=== PATIENT | female | born 1975 | race Caucasian/White ===

== ENCOUNTER 2020-09-02 08:28 | Outpatient (CLI) | payer OTHER, SELFPAY ==
--- NOTE | ~2020-09-02 | MM_ITS ---
EXAMINATION: MM screening jan BI w chasidy HISTORY: Screening mammogram TECHNIQUE: Craniocaudal and mediolateral oblique 3-D tomosynthesis images were obtained and synthetic 2-D images were generated. CAD analysis was submitted and interpreted. COMPARISON: 08/07/2019, 08/01/2018, 8 03/2017 bilateral digital screening mammogram examinations BREAST PARENCHYMAL COMPOSITION: The breasts are extremely dense, which lowers the sensitivity of mamm ography. FINDINGS: There is no evidence of suspicious mass, calcification, or architectural distortion to sugg est malignancy in either breast. There has been no suspicious interval change. IMPRESSION: 1. No mammographic evidence of malignancy. 2. Recommend routine screening mammography in one year. BI-RADS Category 1: Negative Reviewed, dictated and finalized at location A.
== END 2020-09-02 08:29 | disposition home or self-care (01) ==
LOC: ANHIMG 08:32
PROVIDERS: PCP Obstetrics & Gynecology; Visit Provider Obstetrics & Gynecology
DX: Z12.31 Encounter for screening mammogram for malignant neoplasm of breast (principal)
CPT/HCPCS: 77063; 77067

== ENCOUNTER 2023-02-20 09:03 | Emergency (ER) | payer OTHER, SELFPAY ==
--- NOTE | ~2023-02-20 | XR_ITS ---
EXAMINATION: XR foot LT min 3V DATE: 02/20/2023 09:30 INDICATION: Left foot pain and swelling. TECHNIQUE: 4 views of left foot were obtained. COMPARISON: None. FINDINGS: Bone alignment is normal. No fracture. There is mild osteoarthritis of first metatarsophala ngeal joint. IMPRESSION: 1. Mild osteoarthritis of first metatarsophalangeal joint. Reviewed, dictated and finalized at location A.
[2023-02-20 09:14] VITALS: BP 104/68; PULSE 76; RESP 16; TEMP 36.7; O2SAT 100
--- NOTE | 2023-02-20 09:17 | ED.LOWEXIN ---
HPI - Extremity Injury (Lower) General Chief Complaint: Extremity Injury, Lower Stated Complaint: lt foot injury Time Seen by Provider: 02/20/23 09:17 Source: patient, RN notes reviewed and old records reviewed Mode of arrival: ambulatory Limitations: no limitations History of Present Illness HPI Narrative: 48 year old female who presents to [facility] with complaints of left 2nd toe pain to the base of toe dorsally and also sanches aspect which she noted last week. She reports that she played in a tennis league on Friday night last week and noted pain in her foot on . She states that area under toe was initially very swollen and painful to ambulate on especially if not wearing shoes.patient reports that she has rested her foot,iced foot and has also taken some Ibuprofen for her discomfort.She states she saw her chiropractor and she adjusted her 2nd toe which did seem to help some but pain resumed. MD complaint: foot injury (2nd toe) Onset (ago): week(s) (1) Severity scale (1-10): 2 Treatments prior to arrival: cold therapy, NSAIDS and other (rested) Related Data Home Medications Medication Instructions Recorded Confirmed Flonase 02/20/23 levothyroxine 100 mcg tablet mcg 02/20/23 Allergies Allergy/AdvReac Type Severity Reaction Status Date / Time naproxen Allergy Mild Rash Verified 02/20/23 09:20 amoxicillin AdvReac Diarrhea Verified 02/20/23 09:20 NAPROXEN SODIUM Allergy Rash Uncoded 02/20/23 09:20 Review of Systems Review of Systems: CONSTITUTIONAL: Denies fever, chills, or sweats. EYES: Denies visual changes, redness, or discharge. ENT: Denies rhinorrhea, congestion, sore throat, or otalgia. CARDIOVASCULAR: Denies chest pain, palpitations, or edema. RESPIRATORY: Denies cough or dyspnea. GASTROINTESTINAL: Denies abdominal pain, nausea, vomiting, or diarrhea. GENITOURINARY: Denies dysuria or hematuria. SKIN: Denies rash or itching. MUSCULOSKELETAL: Denies back pain, positive for pain to the base of her 2nd toe left foot underneath and dorsal aspect. or myalgia. NEUROLOGIC: Denies headache, numbness, or weakness. PSYCHIATRIC: Denies anxiety or depression. All systems reviewed & are unremarkable except as noted in HPI and below PMFSH Past Medical History Medical History (Updated 02/20/23 @ 09:56 by Tameka Frey NP) Endometriosis Hypothyroidism Surgical History Surgical History (Updated 02/20/23 @ 09:28 by Tameka Frey NP) H/O laparoscopy H/O: hysterectomy Hx of partial thyroidectomy Family History Family History (Updated 07/14/14 @ 07:13 by DOCTOR UNKNOWN) Mother Family history of hypothyroidism Social History Social History (Updated 02/20/23 @ 10:11 by Tameka Frey NP) Smoking status: Never smoker Alcohol intake: current Alcohol use details: social Substance use type: does not use Living arrangements: with family Gender identity (if verbalized by the patient): Female Comments At time of signature, agree with nursing past medical, surgical, social and family history. There is no relevant family history pertinent to the presenting complaint Exam Narrative: GENERAL: Well-appearing, well-nourished, and in no acute distress. HEAD: Normocephalic, atraumatic. EYES: PERRLA and EOMI. ENT: Nares clear, no rhinorrhea or epistaxis. Mucous membranes moist. TM's normal throat pink with no swelling NECK: Supple.no lymphadenopathy CHEST: Clear to auscultation. No respiratory distress.SAO2 100% on room air HEART: Regular rate and rhythm. No murmur heard. Normal peripheral pulses. ABDOMEN: Soft, nontender, nondistended, normal active bowel sounds. EXTREMITIES: Normal range of motion. No edema noted to left foot with full ROM of foot and toes with strong pedal pulse present. Patient reports pain to the base of her 2nd toe left foot sanches and dorsal aspects SKIN: Warm, dry, no rash. NEURO: No focal deficits. Alert and oriented x3. Course Course Emergency Course
== END 2023-02-20 10:02 | disposition home or self-care (01) ==
PROVIDERS: Emergency Provider Registered Nurse
DX: S90.32XA Contusion of left foot, initial encounter (principal); X58.XXXA Exposure to other specified factors, initial encounter; Y93.59 Activity, other involving other sports and athletics played individually; N80.9 Endometriosis, unspecified; E03.9 Hypothyroidism, unspecified
CPT/HCPCS: 73630; 99213; G0463